=== PATIENT | female | born 1930 | race Caucasian/White ===

== ENCOUNTER 2016-10-17 17:00 | Inpatient (IN) | payer MEDICARE, BC ==
[~2016-10-17] VITALS: Ht 154.9 cm; Wt 62.4 kg
--- NOTE | ~2016-10-17 | CON ---
PATIENT'S NAME: JEF NICHOLSON [facility] AGE: 86 Y [address] ROOM: [address] [place], [place] [address] LOCATION: TU ADMIT DATE: 10/17/2016 Consultation DISCHARGE DATE: 10/19/2016 FAMILY PHYSICIAN: JATINDER WOODS MD (ALMA) ATTENDING PHYSICIAN: Niall Sosa DATE OF CONSULTATION: 10/18/2016 REFERRING PHYSICIAN: Blair Bob MD TIME: 0945 a.m. CHIEF COMPLAINT: Aphasia, difficulty speaking. HISTORY OF PRESENT ILLNESS: This is a delightful, , 86-year-old female with a past medical history of coronary artery disease, hypertension, and TIAs. She presented to an outside emergency department after she experienced aphasia and headache around noon today. At that time, a CAT scan was done which was negative for any acute changes. She was transferred here for definitive care. TPA was not considered because she was outside the window, and her symptoms had improved. She denied any focal weakness. She denied any vision changes. She does have a frontal headache, which is about 3/10, which is dull. No alleviating or aggravating factors are noted in this headache. She states she has had multiple episodes of these in the past and has been worked up. She denies any chest pain, palpitations, shortness of breath, cough, sputum production, dizziness, vertigo, abdominal pain, burning on urination, or any extremity swelling. She had been on Plavix in the past, but was taken off because of a head laceration and profuse bleeding. REVIEW OF SYSTEMS: All other systems were reviewed and are negative except what is mentioned in the HPI. PAST MEDICAL HISTORY: 1. Essential hypertension. 2. Coronary artery disease without need for intervention. 3. TIA history. MEDICATIONS: Include: 1. Metoprolol 25 mg p.o. q.h.s. 2. Amlodipine 2.5 mg p.o. daily. 3. Oxybutynin 10 mg p.o. daily. PATIENT'S NAME: JEF NICHOLSON [facility] AGE: 86 Y [address] ROOM: [address] [place], [place] [address] LOCATION: TU ADMIT DATE: 10/17/2016 Consultation DISCHARGE DATE: 10/19/2016 FAMILY PHYSICIAN: JATINDER WOODS ([place]) ATTENDING PHYSICIAN: Niall Sosa 4. Atorvastatin 40 mg p.o. daily. 5. Aspirin 81 mg p.o. daily. 6. Multivitamin tablet p.o. b.i.d. 7. Protonix 40 mg daily. 8. Calcium carbonate one tablet p.o. q.2 hours p.r.n. indigestion. 9. Vitamin D3 at 2000 units p.o. daily. ALLERGIES: SHE HAS NO KNOWN DRUG ALLERGIES. SOCIAL HISTORY: Never a smoker. No drug or alcohol abuse. FAMILY HISTORY: Significant for stroke in her mother and father and both sisters. PHYSICAL EXAMINATION: VITAL SIGNS: Blood pressure is 146/74, heart rate is 82. She is afebrile, respirations 16. GENERAL: She is in no acute distress and cooperative with the exam. HEENT: Her head is atraumatic and normocephalic. Her eyes are nonicteric with no pallor. CARDIOVASCULAR: S1 and S2 without murmur, rub, or gallop. LUNGS: Clear to auscultation bilaterally. ABDOMEN: Soft, nontender, and nondistended. NEUROLOGIC: Cranial nerves 2 through 12 are intact. She is alert and oriented x4. She has no sensory deficits. Her NIH stroke scale at this time is 0. IMAGING: CAT scan from the outside department showed no acute intracranial changes and just some white matter changes consistent with chronic small vessel ischemia. Her MRI shows no acute findings and no infarct. It does show advanced chronic white matter changes more than usual for her age which is probably a result of small vessel ischemic disease. ASSESSMENT AND PLAN: Transient ischemic attack. We will evaluate the patient with an MRA to look at her intracranial vessels. Appreciate the hospitalist's input in obtaining the MRI. We will also follow up with a lipid panel and imaging of the carotid arteries. The patient will continue on her stroke prevention medications including the aspirin and Lipitor. We will include PT, OT, and speech to work with the patient to facilitate assessment since the patient has had previous transient ischemic attacks. The plan of care was developed with Dr. Smart. PATIENT'S NAME: JEF NICHOLSON [facility] AGE: 86 Y [address] ROOM: [address] [address] LOCATION: [facility] ADMIT DATE: 10/17/2016 Consultation DISCHARGE DATE: 10/19/2016 FAMILY PHYSICIAN: JATINDER WOODS MD (ALMA) ATTENDING PHYSICIAN: Niall Sosa Thank you for the opportunity to participate in this patient's care. If you have any questions, please do not hesitate to ask us. FAM TUCKER APRN FOR MONI WALKER MD PP/modl /[id number] P d: 10/29/16 1138 t: 10/31/16 1729, CONSULTATION REPORT
--- NOTE | ~2016-10-17 | CON ---
PATIENT'S NAME: JEF NICHOLSON [facility] AGE: 86 Y [address] ROOM: [address] [place], [place] [address] LOCATION: [facility] ADMIT DATE: 10/17/2016 Consultation DISCHARGE DATE: FAMILY PHYSICIAN: JATINDER WOODS MD (ALMA) ATTENDING PHYSICIAN: SHAI SOSA REFERRING PHYSICIAN: ROMAIN DON MD A consult for Dr. Sosa, hospitalist. HISTORY OF PRESENT ILLNESS: This pleasant, 86-year-old lady, who lives with in [place], [place], is referred for rehab evaluation, admitted on 10/17 with aphasia, namely expressive aphasia, with headache, but no weakness. No numbness. Denied any fall. Had a dull headache behind the right eye, she rated it about 3/10 in severity. No dizziness. No shortness of breath. No vertigo. Confirmed that she had frequent similar conditions and episodes before, and she always recovered fully. PAST MEDICAL HISTORY: 1. History of coronary artery disease. 2. Hypertension. 3. 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 REVIEW OF SYSTEMS: She denied, at the present time, any nausea, vomiting, fever, or trauma. At the present time, she is deemed not a candidate for tPA. PHYSICAL EXAMINATION: NEUROLOGIC: Now, alert, oriented x3. Able to comprehend, express. She is telling me that when she is talking, she feels that she is a little bit struggling to bring the proper words, but I am hearing proper words all the time, and she feels that she is a little bit pushing it. Voice is clear and not wet. No facial droop. Tongue and soft palate are moving symmetrical. Cranial nerves 2 through 12 are within normal limits. No nystagmus. No vertigo. No double vision. She can swallow without difficulty. Can move all 4 with a muscle strength of about 4+/5. Deep tendons 1+ throughout. Has good bowel and bladder control. VITAL SIGNS: Blood pressure 156/73, temperature 97.5, pulse 68, and respiration rate 12. She is 5 feet 1 inch and weighs 60.7. MEDICATIONS: She is on the following medications: 1. Multivitamin. 2. Centura. 3. Vitamin D3. PATIENT'S NAME: SHOEMAKER, FERCHO [facility] AGE: 86 Y [address] ROOM: [place] [address] LOCATION: [facility] ADMIT DATE: 10/17/2016 Consultation DISCHARGE DATE: FAMILY PHYSICIAN: JATINDER WOODS) ATTENDING PHYSICIAN: SHAI SOSA 4. Lipitor. 5. Tylenol. 6. NaCl 0.9%. 7. Tums. 8. Aspirin. 9. Protonix. ASSESSMENT AND PLAN: She is, at the present time, able to ambulate without assistive device only with supervision at this time or standby diversional therapist's assistant for about 600 feet x1 without any diversional therapist's assistant and good karli and regular steps. She has been initiated on PT, OT, and speech, which we will continue at the present time; however, she should not drive and avoid alcoholic beverage for the time being. I will follow alongside with you. I feel that she can go on outpatient basis, and I would like to see her in 2 weeks followup in my office. Thank you for this referral. All the above was explained to her and her daughter. They verbalized understanding and agreement. MD YUNIOR BETH/betty /[id number] d: 10/18/16 1738 t: 10/19/16 1131, CONSULTATION REPORT
--- NOTE | ~2016-10-17 | ENPV ---
Carotid Duplex Study Demographics Patient Name JEF NICHOLSON Date of Study 10/19/2016 Patient Number [id number] Gender Female Date of 1930 Age 86 Visit Number [id number] Height Accession Number [id number] Weight Room Number G6218 BSA BMI Referring Ev Jackson MD Interpreting [facility] Physician Physician Carlos Christopher MD Physician Ordering Physician Matt Bal MD Dishtank Operator Otorhinolaryngologist Vish Gonzalez [facility] Conclusions Summary No report from exam on 05/18/2013 The right internal carotid artery has mild, 1-39%, plaque and stenosis. The right vertebral artery is present with antegrade flow. The left internal carotid artery has mild, 1-39%, plaque and stenosis. The left vertebral artery is present with antegrade flow. Recommendations No further follow up recommended unless clinically indicated. Procedure Type of Study: Cerebral:Carotid, Carotid Doppler Bilateral. Indications for Study:TIA. Appropriate Use Criteria:9 Patient Status:Routine. Study Location:Inpatient Portable. Technical Quality:Adequate visualization. Velocities are measured in cm/s ; Diameters are measured in cm Carotid Right Measurements Carotid Left Measurements + +--------+--------+ + + + +--------+ --------+ + + !Location !PSV !EDV !Angle !%Stenosis ! !Location !PSV ! EDV !Angle !%Stenosis ! + +--------+--------+ + + + +--------+ --------+ + + !Prox CCA !53 !13 !44 ! ! !Prox CCA !60 ! 13 !52 ! ! + +--------+--------+ + + + +--------+ --------+ + + !Dist CCA !58 !11 !60 ! ! !Dist CCA !51 ! 12 !52 ! ! + +--------+--------+ + + + +--------+ --------+ + + !Prox ICA !60 !16 !60 ! ! !Prox ICA !70 ! 15 !52 ! ! + +--------+--------+ + + + +--------+ --------+ + + !Dist ICA !60 !16 !30 ! ! !Dist ICA !66 ! 20 !52 ! ! + +--------+--------+ + + + +--------+ --------+ + + !Prox ECA !67 ! !60 ! ! !Prox ECA !72 ! !52 ! ! + +--------+--------+ + + + +--------+ --------+ + + !Vertebral !18 ! !36 ! ! !Vertebral !25 ! !46 ! ! + +--------+--------+ + + + +--------+ --------+ + + !Subclavian !85 ! ! ! ! !Subclavian !99 ! ! ! ! + +--------+--------+ + + + +--------+ --------+ + + - There is antegrade vertebral flow noted on the right side. - There is antegrade verte bral flow noted on the left side. - Add'l Measurements:ICAPSV/CCAPSV 1.14.ICAEDV/CCAEDV 1.23. - Add'l Measurements:ICAPS V/CCAPSV 1.18.ICAEDV/CCAEDV 1.49. Signature dtt: Alan Gonzalez dttanmay: 10/19/16 1428 Physician Self Edit
--- NOTE | ~2016-10-17 | PUL ---
PATIENT'S NAME: JEF NICHOLSON [facility] AGE: 86 Y [address] ROOM: [address] [address] LOCATION: GNTU ADMIT DATE: 10/17/2016 Pulmonary DISCHARGE DATE: 10/19/2016 FAMILY PHYSICIAN: JATINDER WOODS MD (ALMA) ATTENDING PHYSICIAN: Niall Sosa NAME OF PROCEDURE: Overnight Trend Oximetry DATE OF PROCEDURE: October 18 to October 19, 2016 REASON FOR EXAM: Nocturnal hypoxemia RESULTS: Patient underwent overnight trend oximetry, saturations ranging from 86 to 98%. Saturations were below 88% for fewer than 5 minutes. Heart rate ranged from 56 to 113 beats per minute. RICO FERGUSON MD /[id number] dtt: 11/11/16 0827 Becca David E. dtd: 11/04/16 1052
--- NOTE | ~2016-10-17 | DS ---
PATIENT'S NAME: JEF NICHOLSON [facility] AGE: 86 Y [address] ROOM: [place] [address] LOCATION: TU ADMIT DATE: 10/17/2016 Discharge Summary DISCHARGE DATE: 10/19/2016 FAMILY PHYSICIAN: JATINDER WOODS MD (ALMA) ATTENDING PHYSICIAN: Niall Sosa PRIMARY DIAGNOSES: 1. Expressive aphasia. 2. Atypical migraine. 3. Essential hypertension. 4. Hyperlipidemia. 5. Coronary artery disease. 6. Overactive bladder. 7. Gastroesophageal reflux disease. OPERATIONS AND PROCEDURES: MRI scan of the brain obtained on 10/18/2016 was negative for any acute intracranial pathology. Advanced chronic white matter changes and findings consistent with chronic small vessel ischemic disease were noted. No stroke. MRA of the brain and neck obtained on 10/19/2016 and subsequently 10/20/2016 were negative for any acute process. Carotid Doppler ultrasound testing on 10/19/2016 showed no significant occlusive disease. HISTORY PRESENTING ILLNESS/REASON FOR ADMISSION: Please refer to H and P dictated on 10/17/2016. HOSPITAL COURSE: The patient has been admitted to the hospital as noted above with a presumptive diagnosis of expressive aphasia. Preliminary suspicion was for stroke symptoms. Interestingly, her symptoms had started, stopped, restarted, and subsided on multiple occasions on the day of her presentation. She was completely asymptomatic over the course of her hospital stay here. MRI scan was obtained with the findings outlined above. She was placed on the Neurotrauma Unit and stroke protocol was followed. Her medical therapy was optimized with Plavix and statin therapy. Teleneurology was consulted but did not see the patient based on the fact that her symptoms had resolved. Imaging studies and vascular studies were performed as described above with no significant findings. Ultimately, it was felt that her symptoms were probably due to atypical migraine and she was counseled about this. By the end of the second day of her hospital stay, it was felt she would be stable enough for discharge home with plans for close clinical followup with her primary care physician. DISCHARGE INSTRUCTIONS: DIET: Cardiac prudent as tolerated. PATIENT'S NAME: JEF NICHOLSON [facility] AGE: 86 Y [address] ROOM: [place] [address] LOCATION: [facility] ADMIT DATE: 10/17/2016 Discharge Summary DISCHARGE DATE: 10/19/2016 FAMILY PHYSICIAN: JATINDER WOODS ([place]) ATTENDING PHYSICIAN: Niall Sosa ACTIVITIES: As tolerated. MEDICATIONS: 1. Aspirin 81 mg p.o. daily. 2. Atorvastatin 40 mg p.o. daily. 3. Vitamin D3, 2000 units p.o. daily. 4. Metoprolol 25 mg p.o. q.h.s. 5. Amlodipine 2.5 mg p.o. daily. 6. PreserVision AREDS daily. 7. Omeprazole 40 mg p.o. daily. 8. Calcium with vitamin D 1 tablet p.o. q.2 hours p.r.n. indigestion. 9. Oxybutynin 10 mg p.o. daily. FOLLOWUP: She will follow up with Dr. Woods in [place] in 3 to 5 days. She will follow up with Dr. Roca, physiatry, in 2 weeks. CONDITION ON DISCHARGE: Fair. TIME SPENT: Total time spent on discharge process is 45 minutes. MD JEFFREY CLEMENTS/betty /[id number] d: 10/31/16 0553 t: 11/13/16 1812, DISCHARGE SUMMARY
--- NOTE | ~2016-10-17 | HP ---
PATIENT'S NAME: JEF NICHOLSON [facility] AGE: 86 Y [address] ROOM: [address] [place], [place] [address] LOCATION: [facility] ADMIT DATE: 10/17/2016 History & Physical DISCHARGE DATE: FAMILY PHYSICIAN: JATINDER WOODS MD (ALMA) ATTENDING PHYSICIAN: SHAI ORTIZ DATE OF SERVICE: CHIEF COMPLAINT: Aphasia, difficulty speaking. HISTORY OF PRESENT ILLNESS: This is an 86-year-old lady with a past medical history of coronary artery disease, hypertension, as well as multiple TIAs in the past, presented to the local emergency department after she experienced aphasia and headache around lunchtime today. At the local emergency department, a CAT scan was done, which was negative for any acute changes and for possible stroke. She was transferred here for further medical care. I spoke with her transferring physician and asked for the consideration of the tPA. He told me that the symptoms onset was way before and the patient is outside window for tPA at this point. I asked the patient when was the onset of symptoms and she told me it was around noon today and those resolved in the emergency department and then aphasia got better. She denied having any weakness anywhere in the body. She did endorse having frontal headache, which is dull, achy, behind the eyes, 3/10 right now, no alleviating or aggravating factors. The patient told me that she had multiple episodes of these in the past and have been worked up with the MRI, carotid, as well as echocardiography in the past. She denied any chest pain, palpitations, shortness of breath, cough, sputum production, dizziness, vertigo, abdominal pain, burning on urination, or any extremity swelling. She was on Plavix in the past, but she has taken off because she fell and had profuse bleeding from a head laceration. REVIEW OF SYSTEMS: All other systems reviewed and were negative except what is mentioned in the HPI. PAST MEDICAL HISTORY: 1. Essential hypertension, coronary artery disease, no intervention done. 2. History of TIAs. MEDICATIONS: 1. Metoprolol 25 mg p.o. q.h.s. 2. Amlodipine 2.5 mg p.o. daily. 3. Oxybutynin 10 mg p.o. daily. 4. Atorvastatin 40 mg p.o. daily. PATIENT'S NAME: JEF NICHOLSON [facility] AGE: 86 Y [address] ROOM: [address] [address] LOCATION: [facility] ADMIT DATE: 10/17/2016 History & Physical DISCHARGE DATE: FAMILY PHYSICIAN: JATINDER WOODS MD ([place]) ATTENDING PHYSICIAN: SHAI ORTIZ 5. Aspirin 81 mg p.o. daily. 6. Multivitamin tablet p.o. b.i.d. 7. Esomeprazole 40 mg daily. 8. Calcium carbonate 1 tablet p.o. q.2 hours p.r.n. for indigestion. 9. Cholecalciferol. 10. Vitamin D3, 2000 units p.o. daily. ALLERGIES: NO KNOW DRUG MEDICAL ALLERGIES. SOCIAL HISTORY: Never a smoker. No drug or alcohol abuse. FAMILY HISTORY: Family history significant for stroke in the mother, father, as well as both sisters. PHYSICAL EXAMINATION: VITAL SIGNS: Blood pressure 148/75, 84, afebrile, 16. GENERAL: In no acute distress. Alert and oriented x3. HEENT: Head: Atraumatic and normocephalic. Eyes: Nonicteric. No pallor. Oropharynx: Moist mucous membranes. CARDIOVASCULAR: Loud S1. Normal S2. No murmurs, gallops, or rubs. LUNGS: Clear to auscultation bilaterally. ABDOMEN: Soft, nontender, and nondistended. Bowel sounds are present. EXTREMITIES: No clubbing, cyanosis, or edema. PSYCH: Normal affect, mood, and speech. NEURO: Cranial nerves II through XII intact. No motor or sensory deficit noted. MUSCULOSKELETAL: No muscle tenderness noted. Bruise on the right knee was noted from the fall one week ago. IMAGING: CAT scan from the outside emergency department showed no acute intracranial changes, white matter changes consistent with chronic small vessel ischemia consistent with this age. LABORATORY DATA: Lab work was done at the outside facility, which was unremarkable except for creatinine, which was 1.3. ASSESSMENT: 1. Likely transient ischemic attack. 2. Essential hypertension. 3. History of coronary artery disease. PATIENT'S NAME: JEF NICHOLSON [facility] AGE: 86 Y [address] [address] LOCATION: [facility] ADMIT DATE: 10/17/2016 History & Physical DISCHARGE DATE: FAMILY PHYSICIAN: JATINDER WOODS) ATTENDING PHYSICIAN: SHAI ORTIZ 4. History of cerebrovascular accidents in the past. 5. Acute kidney injury. PLAN: We are going to admit this patient and start her on stroke protocol including aspirin and Lipitor. MRI, carotid Dopplers, as well as echocardiography will be done. Neurology consultation will be obtained. I might as well question migraine headache with complication at this point, we will defer this to Neurology. SCDs for DVT prophylaxis. PT/OT. We will obtain medical records from the [facility] of her cardiac workup in the past. MD SIGIFREDO GRAHAM/betty /[id number] D: 159 T: 841 HISTORY & PHYSICAL
[2016-10-17] MEDS ORDERED: DITROPAN XL10 MG PO (18:18)
[2016-10-17] MEDS ORDERED: NORVASC2.5 MG PO (18:18)
[2016-10-17] MEDS ORDERED: LOPRESSOR25 MG PO (18:18)
[2016-10-17] MEDS ORDERED: LIPITOR40 MG PO (18:19)
[2016-10-17] MEDS ORDERED: TUMS REGULAR ST1 TAB PO (18:19)
[2016-10-17] MEDS ORDERED: NEXIUM40 MG PO (18:19)
[2016-10-17] MEDS ORDERED: ASPIRIN LO-DOSE81 MG PO (18:19)
[2016-10-17] MEDS ORDERED: PRESERVISION A1 EAC1 PO (18:19)
[2016-10-17] MEDS ORDERED: VITAMIN D-32000 UNI1 PO (18:20)
--- NOTE | 2016-10-17 19:21 | NUR ---
Pt is 86 yo female admitted this evening after experiencing some symptoms of TIA's this noon and afternoon. She states she was at the . Center in [place] for lunch. states she felt like she was going to have a TIA, states she has had many of them in the past. she states her speech was not right, then it would get better. she told the director that she thought she was having a TIA and she was taken to the ER in [place]. While there, her speech would get better, then it would get worse again. initially, the plan was to send her home, however with her speech getting worse, it was decided to transfer her here for observation. patient lives in [place] with her . Saline lock is noted in right inner forearm without erythema or edema noted at site. Education is given as documented. patient and daughter deny questions. pneumatics are on bilat calves. pt raul well. red socks are on patient as she apparently fell on Thursday. has bandaids on her right elbow and right knee. call light is within reach. patient denies needs at this time. Report is given to SPENCER Johnson.
--- NOTE | 2016-10-18 07:23 | NUR ---
Significant Event: Patient is alert and oriented x 3. NIHSS-0. Patient states all of her symptoms resolved and that her only problem was her speech. Stated at the beginning of the shift she had a slight headache. Did later take Tylenol with relief noted. States at baseline she has intermittent numbness and tingling but denies any at this time. PERRL. Impaired vision r/t macular degeneration-holds things to the left to read. Equal strength throughout. Moves spontaneously and follows commands. 2+ pulses. VSS. Afebrile. HTN. On RA while awake. Did have to place on 1L O2 via NC while sleeping. Lungs clear. Bowel sounds active. Last BM 10/17/16. Voids without complications. SBA with gait belt. SCDs intact. On ASA. Repositions self. Daughter at bedside. Uses call light appropriately. IV to right forearm infusing NS at 125 mL/hr. Regular diet with good appetite. Follow up: teleneuro consult today. MRI and TTE today, NIHSS
--- NOTE | 2016-10-18 13:38 | NUR ---
CONSULT RECEIVED, PER ROUTINE STROKE ORDERS. IF APPROPRIATE, DIET ED WILL BE COMPLETED PRIOR TO DISMISSAL.
--- NOTE | 2016-10-18 18:10 | NUR ---
Significant Event: a/o x 3. slight headache. PRN tylenol with stated relief. NIHSS=0. Dr. Calix saw today. MRA tomorrow. overnight trend oximetry tonight. up with gait belt and SBA. IV to left wrist with NS infusing at 75ml/hr. Tele with NSR.
--- NOTE | 2016-10-19 07:21 | NUR ---
Significant Event: A/Ox3. Ambulates SBA with gait belt and IV pole. NIHHS-0. Pupils equal and reactive. Denies pain or discomfort and no prn's given. Denies numbness/tingling and follows all commands. MRA scheduled today. IV to right forearm at 125ml/hr. Vital signs stable. Pulse ox trend study completed last night. No oxygen needed throughout the night. Calm and cooperative with cares. Follow up: Possibly going home today
--- NOTE | 2016-10-19 14:26 | NUR ---
ULTRA HIGH FALL RISK Significant Event: A/O X3, SBA up in room/chair/toilet, family @ bedside. R)FA saline lock, NIHSS=0, good appetite, voids without difficulty, scattered abrasions/bruises to skin, Follow up: awaiting carotid doppler - then home later today
--- NOTE | 2016-10-19 17:50 | NUR ---
written and verbal dismissal instructions given to pt. and family including diet, activity, mediccations, blood clot prevention, and follow up care. verbalized understanding. escorted per w/c to ride home in stable condition.
== END 2016-10-19 17:50 | disposition disaster alternative care site (69) | DRG 103 ==
LOC: GNTU 17:21
PROVIDERS: ADMIT Internal Medicine
DX: G43.809 Other migraine, not intractable, without status migrainosus (principal); N17.9 Acute kidney failure, unspecified; R47.01 Aphasia; I10 Essential (primary) hypertension; I25.10 Atherosclerotic heart disease of native coronary artery without angina pectoris; N32.81 Overactive bladder; K21.9 Gastro-esophageal reflux disease without esophagitis; Z86.73 Personal history of transient ischemic attack (TIA), and cerebral infarction without residual deficits
CPT/HCPCS: J7030